=== PATIENT | male | born 2000 | race Two or more races ===

== ENCOUNTER 2021-07-20 22:17 | Emergency (ER) | payer MEDICAID ==
--- NOTE | 2021-07-20 22:25 | NUR ---
CALLED FOR TRIAGE . NO RESPONSE
--- NOTE | 2021-07-20 22:50 | NUR ---
CALLED FOR TRIAGE. NO ANSWER
--- NOTE | 2021-07-20 23:24 | NUR ---
CALLED FOR TRIAGE. NO ANSWER
== END 2021-07-20 23:26 | disposition left against medical advice (07) ==
LOC: ER 22:22
DX: Z02.89 Encounter for other administrative examinations (principal); Z53.21 Procedure and treatment not carried out due to patient leaving prior to being seen by health care provider